=== PATIENT | female | born 1950 | race Caucasian/White ===

== ENCOUNTER 2017-04-17 21:47 | Emergency (ER) | payer OTHER ==
[~2017-04-17] VITALS: Ht 154.9 cm; Wt 56.7 kg
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
--- NOTE | 2017-04-17 22:03 | NUR ---
ANITHA FABIAN AT BEDSIDE FOR EVAL.
[2017-04-17] MEDS ORDERED: HYDROCODONE/APAP 5/325MG 1 EACH TABLET ONE ×2 (22:10→23:17)
[2017-04-17] MEDS ORDERED: HYDROCODONE/APAP 5/325MG 1 EACH TABLET PO ONE ×2 (22:30→23:30)
--- NOTE | 2017-04-17 22:50 | NUR ---
RADIOLOGY AT BEDSIDE FOR R WRIST AND L FOOT XRAY.
--- NOTE | 2017-04-17 23:18 | NUR ---
PT STILL IN PAIN. ANITHA TEST SKEIN WINDER AWARE. NORCO 5/325 GIVEN PO PER ANITHA FABIAN VERBAL ORDER.
--- NOTE | 2017-04-17 23:19 | NUR ---
TECH AT BEDSIDE FOR SPLINT APPLICATION.
--- NOTE | 2017-04-17 23:42 | NUR ---
Patient discharged to home in stable condition. Written and verbal after care instructions given. Patient verbalizes understanding of instruction.
[2017-04-17 23:45] VITALS: BP 135/70
== END 2017-04-17 23:49 | disposition home or self-care (01) ==
LOC: ER 21:48
DX: S52.511A Displaced fracture of right radial styloid process, initial encounter for closed fracture (principal); S92.352A Displaced fracture of fifth metatarsal bone, left foot, initial encounter for closed fracture; F32.9 Major depressive disorder, single episode, unspecified; Z88.2 Allergy status to sulfonamides; W18.30XA Fall on same level, unspecified, initial encounter; Y93.89 Activity, other specified; Y92.89 Other specified places as the place of occurrence of the external cause; Y99.9 Unspecified external cause status
CPT/HCPCS: 73110; 73620; 99284; A4606; Z7610

== ENCOUNTER 2018-02-17 20:09 | Emergency (ER) | payer MEDICARE, BC ==
[~2018-02-17] VITALS: Ht 154.9 cm; Wt 56.7 kg
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
[2018-02-17] MEDS ORDERED: ONDANSETRON HCL/PF 4 MG/2 ML VIAL IVP ONE (20:30)
[2018-02-17] MEDS ORDERED: IV NS 0.9% 500 ML BAG IV ONE (20:30)
[2018-02-17] MEDS ORDERED: MORPHINE SULFATE INJ 2 MG/ML DISP.SYRIN IV ONE (20:30)
[2018-02-17] MEDS ORDERED: ONDANSETRON HCL/PF 4 MG/2 ML VIAL ONE (20:34)
[2018-02-17] MEDS ORDERED: MORPHINE SULFATE INJ 4 MG/ML DISP.SYRIN ONE (20:34)
[2018-02-17 20:39] LABS: BASOPHILS % (AUTO) 0.3 % (0.0-2.0); EOSINOPHILS % (AUTO) 1.4 % (0.0-6.0); HEMATOCRIT 40 % (33-45); HEMOGLOBIN 13.8 g/dL (11.5-14.8); LYMPHOCYTES # (AUTO) 1.3 /CMM (0.8-4.8); LYMPHOCYTES % (AUTO) 13.8 % (20.0-44.0); MEAN CORPUSCULAR HGB CONC 35 g/dl (31.0-36.0); MEAN CORPUSCULAR VOLUME 88 fL (82-100); MONOCYTES # (AUTO) 0.8 /CMM (0.1-1.30); MONOCYTES % (AUTO) 8.4 % (2.0-12.0); NEUTROPHILS % (AUTO) 76.1 % (43.0-81.0); PLATELET COUNT (AUTO) 250 /CMM (150-450); RDW COEFFICIENT OF VARIATION 12.7 (11.5-15.0); RED BLOOD CELL COUNT(AUTO) 4.55 MIL/uL (4.0-5.2); WHITE BLOOD COUNT (AUTO) 9.2 K/uL (4.3-11.0)
[2018-02-17 20:54] LABS: INR 0.92 (0.85-1.15)
[2018-02-17 21:27] LABS: CALCIUM, SERUM 8.7 mg/dL (8.5-10.1); CREATININE 0.7 mg/dL (0.6-1.3); POTASSIUM 3.7 mmol/L (3.5-5.1)
--- NOTE | 2018-02-17 21:37 | NUR ---
CALLED DR. AMATO [phone]. HE IS WALKING TO THE ER.
--- NOTE | 2018-02-17 21:37 | NUR ---
URINE SAMPLE COLLECTED SENT TO LAB
[2018-02-17 21:40] LABS: APPEARANCE,URINE Slightly Cloudy (CLEAR); BILIRUBIN,URINE Negative (NEGATIVE); BLOOD, URINE Negative Ery/uL (NEGATIVE); COLOR,URINE Yellow (YELLOW); KETONES,URINE Trace (NEGATIVE); LEUKOCYTE ESTERASE ,URINE Negative (NEGATIVE); NITRITE, URINE Negative (NEGATIVE); PROTEIN,URINE Negative (NEGATIVE); UGLUCOSE Negative (NEGATIVE); UROBILINOGEN,URINE 0.2 EU/dL (0.2)
[2018-02-17 21:44] LABS: ALBUMIN 3.9 g/dL (3.4-5.0); BILIRUBIN,DIRECT 0.1 mg/dL (0.0-0.2); BILIRUBIN,TOTAL 0.3 mg/dL (0.2-1.0); TOTAL PROTEIN, SERUM 6.6 g/dL (6.4-8.2)
--- NOTE | 2018-02-17 21:50 | NUR ---
DR. AMATO AT BEDSIDE FOR EVAL.
[2018-02-17 22:25] VITALS: BP 120/71
--- NOTE | 2018-02-17 22:25 | NUR ---
IV removed. Catheter intact and site benign. Pressure and 4x4 applied to site. No bleeding noted.
--- NOTE | 2018-02-17 22:25 | NUR ---
Patient discharged to home in stable condition. Written and verbal after care instructions given. Patient verbalizes understanding of instruction.
== END 2018-02-17 22:48 | disposition home or self-care (01) ==
LOC: ER 20:11
DX: K56.699 Other intestinal obstruction unspecified as to partial versus complete obstruction (principal); K43.9 Ventral hernia without obstruction or gangrene; F32.9 Major depressive disorder, single episode, unspecified; Z88.2 Allergy status to sulfonamides
CPT/HCPCS: 36415; 74176; 80048; 80076; 81001; 85025; 85730; 96374; 96375; 99285; A4606; J2270; J2405; J7040; 81000-TC; Z7610